=== PATIENT | male | born 1940 | race Caucasian/White ===

== ENCOUNTER 2017-10-13 23:50 | Emergency (ER) | payer MEDICARE, OTHER ==
[2017-10-14] MEDS: SOD CHLORIDE 0.9% 500 ML IV (01:01)
[2017-10-14] MEDS: hydrALAzine 20 MG INJ IV (01:40)
[2017-10-14] MEDS: SOD CHLORIDE 0.9% 100 ML (01:55)
[2017-10-14] MEDS: IOHEXOL 300MG/ML 150 ML BTL (01:55)
[2017-10-14] MEDS: HYDROmorphONE 1 MG/ML SYG IV ×3 (02:04→02:41)
[2017-10-14 02:05] LABS: ADD MAN DIFF? NO
[2017-10-14] MEDS: ONDANSETRON 4 MG INJ IV (02:05)
[2017-10-14 02:08] LABS: WHITE BLOOD COUNT 10.2 10^3/ul (4.8-10.8)
[2017-10-14 02:08] LABS: BASOPHILS % 0.3 % (0.0-2.0); EOSINOPHILS # 0.1 10^3/ul (0.0-0.5); EOSINOPHILS % 1.2 % (0.0-7.0); HEMATOCRIT 43.2 % (42.0-52.0); HEMOGLOBIN 14.1 g/dl (14.0-18.0); LYMPHOCYTES # 1.9 10^3/ul (0.8-2.9); LYMPHOCYTES % 18.8 % (15.0-51.0); MEAN CORPUSCULAR HEMOGLOBIN 31.8 pg (29.0-33.0); MEAN CORPUSCULAR HGB CONC 32.6 g/dl (32.0-37.0); MEAN CORPUSCULAR VOLUME 97.5 fl (82.0-101.0); MEAN PLATELET VOLUME 11.9 fl (7.4-10.4); MONOCYTE # 0.6 10^3/ul (0.3-0.9); MONOCYTES % 5.6 % (0.0-11.0); NEUTROPHIL # 7.5 10^3/ul (1.6-7.5); NEUTROPHILS % 73.6 % (39.0-77.0); PLATELET COUNT 174 10^3/UL (140-415); RED BLOOD COUNT 4.43 10^6/ul (4.70-6.10); RED CELL DISTRIBUTION WIDTH 13.9 % (11.5-14.5)
[2017-10-14 02:13] LABS: ALANINE AMINOTRANSFERASE 22 IU/L (13-69); ALBUMIN 4.2 g/dl (3.3-4.9); ALBUMIN/GLOBULIN RATIO 1.23; ALKALINE PHOSPHATASE 71 IU/L (42-121); ANION GAP 11 (8-16); ASPARTATE AMINO TRANSFERASE 19 IU/L (15-46); BILIRUBIN,INDIRECT 0.6 mg/dl (0-1.1); BILIRUBIN,TOTAL 0.6 mg/dl (0.2-1.3); BLOOD UREA NITROGEN 18 mg/dl (7-20); CALCIUM 9.4 mg/dl (8.4-10.2); CARBON DIOXIDE 26 mmol/L (21-31); CHLORIDE 110 mmol/L (97-110); CREATININE 0.95 mg/dl (0.61-1.24); GLUCOSE 102 mg/dl (70-220); LIPASE 69 U/L (23-300); SODIUM 143 mmol/L (135-144); TOTAL PROTEIN 7.6 g/dl (6.1-8.1)
[2017-10-14 02:25] LABS: B-TYPE NATRIURETIC PEPTIDE 374 PG/ML (0-450); TROPONIN-I 0.012 ng/ml (0.000-0.120)
[2017-10-14 09:14] LABS: CREATINE KINASE 49 IU/L (23-200)
[2017-10-14 09:26] LABS: CK INDEX 3.2; CK-MB 1.58 ng/ml (0.0-2.4); TROPONIN-I 0.017 ng/ml (0.000-0.120)
== END 2017-10-14 10:36 | disposition home or self-care (01) ==
LOC: E/R 23:50
DX: R07.89 Other chest pain (principal); M25.512 Pain in left shoulder; R10.13 Epigastric pain; R10.11 Right upper quadrant pain; I10 Essential (primary) hypertension; F17.210 Nicotine dependence, cigarettes, uncomplicated; Z79.01 Long term (current) use of anticoagulants; Z79.82 Long term (current) use of aspirin; Z95.0 Presence of cardiac pacemaker
CPT/HCPCS: 36415; 71045; 71250; 74176; 80053; 82550; 82553; 83690; 83880; 84484; 85025; 93005; 96374; 99285-25